=== PATIENT | female | born 1970 | race Asian ===

== ENCOUNTER → 2018-01-04 | Outpatient (CLI) | payer MEDICAID ==
[~2018-01-04] MED LIST: OMNIPAQUE 350 MG/ML, 150 ML BOTTLE ONE
== END | disposition home or self-care (01) ==
LOC: CFH 12:14
PROVIDERS: ATTEND Family Medicine
DX: N20.0 Calculus of kidney (principal); M54.5 Low back pain
CPT/HCPCS: 74178; Q9967

== ENCOUNTER 2018-01-18 08:07 | Emergency (ER) | payer MEDICAID ==
[~2018-01-18] VITALS: Ht 157.5 cm; Wt 54.2 kg
[2018-01-18] MEDS ORDERED: LORA1TAB PO (08:30)
[2018-01-18] MEDS ORDERED: ASPIRIN 81 MG TABLET CHEW PO ONE (08:30)
[2018-01-18] MEDS ORDERED: LORazepam 1MG TABLET PO ONE (08:30)
[2018-01-18] MEDS ORDERED: SUVO10TA PO (08:30)
[2018-01-18] MEDS ORDERED: ASPIRIN 81 MG TABLET CHEW ONE (08:33)
[2018-01-18] MEDS ORDERED: LORazepam 1MG TABLET ONE (08:34)
[2018-01-18 08:38] LABS: BASOPHILS # (AUTO) 0.02 x10^3/uL (0-0.1); BASOPHILS % (AUTO) 0 % (0-1); EOSINOPHILS # (AUTO) 0.15 x10^3/uL (0-0.4); EOSINOPHILS % (AUTO) 2 % (1-7); LYMPHOCYTES # (AUTO) 2.35 x10^3/uL (1-3.4); LYMPHOCYTES % (AUTO) 26 % (22-44); MD NO; MEAN CORPUSCULAR HEMOGLOBIN 32.2 pg (27.0-34.8); MEAN CORPUSCULAR VOLUME 94.7 fL (80-100); MEAN PLATELET VOLUME 7.3 fL (7.4-10.4); MONOCYTES # (AUTO) 0.69 x10^3/uL (0.2-0.8); MONOCYTES % (AUTO) 8 % (2-9); NEUTROPHILS # (AUTO) 5.92 x10^3/uL (1.8-6.8); NEUTROPHILS % (AUTO) 65 % (42-75); PLATELET COUNT 300 x10^3/uL (130-400); RED BLOOD COUNT 4.14 x10^6/uL (3.82-5.3)
[2018-01-18 08:50] LABS: ALBUMIN 3.9 g/dL (3.4-5.0); ANION GAP 11 mmol/L (5-15); CALCIUM 8.6 mg/dL (8.5-10.1); CHLORIDE 106 mmol/L (98-107); CREATININE 0.78 mg/dL (0.55-1.02)
[2018-01-18 08:54] LABS: TROPONIN I < 0.015 ng/mL (0.000-0.045)
[2018-01-18 09:04] VITALS: BP 135/91
== END 2018-01-18 09:28 | disposition home or self-care (01) ==
LOC: ED 09:20
DX: R07.89 Other chest pain (principal)
CPT/HCPCS: 36415; 71046; 80048; 82040; 84484; 85025; 93005; 99285

== ENCOUNTER → 2018-02-08 | Outpatient (CLI) | payer MEDICAID ==
[~2018-02-08] MED LIST changes: +GADOBUTROL 7.5 MMOL/7.5 ML VIAL ONE; +LORA1TAB PO; -OMNIPAQUE 350 MG/ML, 150 ML BOTTLE ONE; +SUVO10TA PO
== END | disposition home or self-care (01) ==
LOC: CFH 10:39
PROVIDERS: ATTEND Family Medicine
DX: R90.82 White matter disease, unspecified (principal); H93.19 Tinnitus, unspecified ear
CPT/HCPCS: 70553; A9585

== ENCOUNTER 2018-02-16 06:01 | Emergency (ER) | payer MEDICAID, OTHER ==
[~2018-02-16] VITALS: Ht 157.5 cm; Wt 54.2 kg
[~2018-02-16 06:01] MED LIST changes: -GADOBUTROL 7.5 MMOL/7.5 ML VIAL ONE
[2018-02-16] MEDS ORDERED: PROMETHAZINE 25 MG/ML, 1ML ONE (06:36)
[2018-02-16 06:59] LABS: BASOPHILS # (AUTO) 0.04 x10^3/uL (0-0.1); BASOPHILS % (AUTO) 0 % (0-1); EOSINOPHILS # (AUTO) 0.03 x10^3/uL (0-0.4); EOSINOPHILS % (AUTO) 0 % (1-7); LYMPHOCYTES % (AUTO) 18 % (22-44); MD NO; MEAN CORPUSCULAR HEMOGLOBIN 32.3 pg (27.0-34.8); MEAN CORPUSCULAR HGB CONC 34.4 g/dL (32.4-35.8); MEAN CORPUSCULAR VOLUME 93.8 fL (80-100); MEAN PLATELET VOLUME 7.1 fL (7.4-10.4); MONOCYTES # (AUTO) 0.61 x10^3/uL (0.2-0.8); MONOCYTES % (AUTO) 7 % (2-9); NEUTROPHILS # (AUTO) 6.41 x10^3/uL (1.8-6.8); NEUTROPHILS % (AUTO) 74 % (42-75); PLATELET COUNT 302 x10^3/uL (130-400); RED BLOOD COUNT 4.37 x10^6/uL (3.82-5.3)
[2018-02-16] MEDS ORDERED: PROMETHAZINE 25 MG/ML, 1ML IM ONE (07:00)
[2018-02-16 07:11] LABS: ALBUMIN 4.3 g/dL (3.4-5.0); ANION GAP 6 mmol/L (5-15); CALCIUM 8.6 mg/dL (8.5-10.1); CHLORIDE 108 mmol/L (98-107)
[2018-02-16 07:21] LABS: FREE T4 (FREE THYROXINE) 1.24 ng/dL (0.76-1.46); THYROID STIMULATING HORMONE 0.814 mIU/L (0.358-3.740)
[2018-02-16 08:16] VITALS: BP 156/92
== END 2018-02-16 08:19 | disposition home or self-care (01) ==
LOC: ED 08:00
DX: F51.01 Primary insomnia (principal); Z88.2 Allergy status to sulfonamides
CPT/HCPCS: 36415; 80048; 82040; 84439; 84443; 85025; 96372; 99284; J2550